=== PATIENT | female | born 2000 | race Two or more races ===

== ENCOUNTER 2021-02-12 23:21 | Outpatient (CLI) | payer OTHER | END 2021-02-13 13:49 | disposition home or self-care (01) | LOC: OBS/DEL 23:21 | PROVIDERS: ATTEND Obstetrics & Gynecology | DX: O23.42 Unspecified infection of urinary tract in pregnancy, second trimester (principal); Z36.89 Encounter for other specified antenatal screening; Z3A.21 21 weeks gestation of pregnancy ==